=== PATIENT | female | born 1960 | race Caucasian/White ===

== ENCOUNTER → 2016-11-17 | Outpatient (CLI) | payer OTHER ==
[~2016-11-17] MED LIST: ACIDOPHILUS LAC1 CAP PO; ALBUTEROL17 GM INH; ASPIRIN PO; B12 HEALTH1000 MCG/1 PO; CEFTRIAXONE2 GM IV; CLONAZEPAM0.5 MG PO; COMBIVENT RESPIM4 GM INH; COREG3.125 MG PO; FENOFIBRATE145 MG PO; FISH OIL 1,0001 CA2 PO; HYDROCODON-ACE1 EAC1 PO; ISMO20 M2 PO; KADIAN40 MG PO; KADIAN50 MG; KLONOPIN PO; LASIX20 MG PO; LEVOTHYROXINE25 MC1 PO; LIPITOR20 MG PO; LISINOPRIL2.5 MG PO; LORTAB 7.5-5001 TAB PO; MIRALAX17 GM PO; MORPHINE PO; MS CONTIN15 M1 PO; MYCAMINE100 MG/VIA; NALTREXONE PO; OMEPRAZOLE40 M1 PO; PENICILLIN PO; PHENERGAN25 MG PO; PREDNISONE PO; PROZAC PO; SYNTHROID0.2 MG PO; TOPAMAX PO; TOPROL XL PO; TRICOR PO; TYLENOL #3 PO
--- NOTE | ~2016-11-17 | CT57 ---
[facility] A Service of [facility] RADIOLOGY TEXT RESULTS PATIENT: ANTON ÁLVAREZ LOCATION: [facility] : 58 UNIT #: [id number] AGE: [address]: FRANKLYN WRAY MD SEX: F ORDER DR: [id number] [facility] [address] [place], [place] [address] [id number] O MR#: [id number] Acc #: [id number] NAME: ANTON ÁLVAREZ. : 1960 SEX: F STUDY DATE/TIME: 11/17/2016 10:06 UNIT: [facility] ROOM: STUDY DESCRIPTION: CT Chest Wo Cont Attending Physician: Franklyn Wray M.D. Referring Physician: Franklyn Wray M.D. Ordering Physician: Franklyn Wray M.D. Primary Care Physician: Franklyn Wray M.D. MEDICAL IMAGING REPORT This report is preliminary unless electronic signature is present EXAM CT of the chest without contrast INDICATIONS 55-year-old female with followup from pneumonia. She has had a cough since August. Previous abnormal chest CT. TECHNIQUE CT scan of the chest was performed without contrast. Coronal and sagittal reformatted images were obtained. Compared with 09/02/2016. The CT exam was performed with one or more of the following radiation dose reduction techniques: automatic exposure control, adjustment of mA and/or kV according to patient size, and iterative reconstruction. FINDINGS Extensive improvement in the appearance of the chest. The previously noted dense consolidations within the right lung and ground-glass consolidations in the left lung have nearly completely resolved. There is some persistent scarring/atelectasis located within the right lung. There is also some minimal atelectasis in the lingula. No evidence of lymphadenopathy. Tiny hiatal hernia. No pleural effusion. Coronary artery stent. Limited imaging of the upper abdomen demonstrates a previous cholecystectomy. The bone windows are unremarkable. IMPRESSION Significant interval improvement in the appearance of the chest. The bilateral consolidations and ground-glass opacities have resolved. There is some persistent linear scarring/atelectasis in the right lung. Dictated by... Ti Bosch M.D. [facility] A Service of [facility] & [facility] RADIOLOGY TEXT RESULTS PATIENT: ANTON [facility]LVAREZ [id number] : 58 UNIT #: [id number] AGE: [address]: FRANKLYN WRAY MD SEX: F ORDER DR: THIS IS AN ELECTRONICALLY VERIFIED REPORT Ti Bosch M.D. at 11/17/2016 4:56 PM GUNNER/renay TD: 11/17/2016 11:34 JOB #: [id number] MEDICAL IMAGING REPORT COPY
[2016-11-17 10:31] LABS: POC - CREATININE 1.13 mg/dL (0.44-1.03)
== END | disposition home or self-care (01) ==
LOC: CCAT 09:22
PROVIDERS: Specialist/Technologist, Other Surgical Technologist
DX: J15.9 Unspecified bacterial pneumonia (principal); J98.4 Other disorders of lung
CPT/HCPCS: 71250; 82565